=== PATIENT | female | born 1960 | race Caucasian/White ===

== ENCOUNTER 2018-03-11 16:11 | Outpatient (CLI) | END 2018-03-11 16:12 | disposition home or self-care (01) | LOC: FCC-LAB 16:11 | PROVIDERS: ATTEND Family Medicine | DX: Z13.220 Encounter for screening for lipoid disorders (principal); Z68.38 Body mass index [BMI] 38.0-38.9, adult | CPT/HCPCS: 36415; 80053; 80061; 85025 ==

== ENCOUNTER 2018-03-18 09:44 | Outpatient (CLI) ==
--- NOTE | 2018-03-18 11:17 | DI ---
EXAM: Single contrast esophagram. History: Dysphagia. Technique: Patient was given oral barium. Multiple spot films of the esophagus and gastroesophageal junction were obtained in various projections. Findings: The course and caliber of the esophagus are within normal limits. No mucosal lesions or fi lling defects. The gastroesophageal junction is patent. No hiatal hernia. No gastroesophageal refl ux. Anterior cervical fusion hardware seen from C5-C7. Just anterior to the cervical fusion hardware, there is a large pocket of contrast material that has accumulated measuring about 4 cm. Impression: Within the soft tissues anterior to the cervical fusion hardware, there is a large pocket of contrast material most compatible with a Zenker's diverticulum and most likely the cause for ean ent's dysphagia.
== END 2018-03-18 09:45 | disposition home or self-care (01) ==
LOC: RAD 09:44
PROVIDERS: ATTEND Family Medicine
DX: R13.10 Dysphagia, unspecified (principal)

== ENCOUNTER 2018-03-19 08:46 | Outpatient (CLI) ==
--- NOTE | 2018-03-20 10:03 | MAMMO ---
EXAM: Bilateral digital screening mammogram (2-D and 3-D) History: Baseline screening Findings: MLO and CC views of bilateral breasts demonstrate scattered fibroglandular breast parenchy ma. CAD was reviewed by the radiologist. Tomosynthesis was performed. There are no dominant masses , no suspicious microcalcifications and no architectural distortions Impression: Negative mammogram. Recommend followup routine screening mammography in 1 year. BIRADS 1
== END 2018-03-19 08:47 | disposition home or self-care (01) ==
LOC: RAD 08:46
PROVIDERS: ATTEND Family Medicine
DX: Z12.31 Encounter for screening mammogram for malignant neoplasm of breast (principal); N30.90 Cystitis, unspecified without hematuria; R73.9 Hyperglycemia, unspecified
CPT/HCPCS: 36415; 77067; 83036; 87086

== ENCOUNTER 2018-07-05 12:44 | Outpatient (CLI) | END 2018-07-05 12:45 | disposition home or self-care (01) | LOC: CAR 12:44 | PROVIDERS: ATTEND Anesthesiology | DX: Z01.818 Encounter for other preprocedural examination (principal); J45.909 Unspecified asthma, uncomplicated; K21.9 Gastro-esophageal reflux disease without esophagitis | CPT/HCPCS: 93005; 93010 ==

== ENCOUNTER 2018-08-11 07:34 | Emergency (ER) ==
[2018-08-11 07:41] VITALS: BP 139/83; TEMP 97.7; BMI 34.9
--- NOTE | 2018-08-11 08:03 | ED.PDOC ---
General ED Provider: Dr. CHARLENE SHANNON-ER Chief Complaint: Wound Check Stated Complaint: i had surgery in [place]--now its swelling and draining and i have fever and chills Time Seen by Physician: 07:45 Mode of Arrival: Walk-In Information Source: Patient Exam Limitations: No limitations Primary Care Provider: RACHEL HALE Nursing and Triage Documentation Reviewed and Agree: Yes Does patient meet sepsis criteria?: No System Inflammatory Response Syndrome: Not Applicable Sepsis Protocol: For patient's 13 years and over: Temp is 96.8 and below OR 101 and greater Pulse >90 BPM Resp >20/minute Acutely Altered Mental Status Are patient's symptoms suggestive of a new infection, such as: -Pneumonia -Skin, Soft Tissue -Endocarditis -UTI -Bone, Joint Infection -Implantable Device -Acute Abdominal Infection -Wound Infection -Meningitis -Blood Stream Catheter Infection -Unknown Skin Complaint Exam - Skin/Soft Tissue Complaint/Exam Onset/Duration: one week Symptoms Are: Still present Timing: Constant Initial Severity: Mild Current Severity: Moderate Location: left neck Character: Reports: Redness, Swelling, Raised, Painful Aggravating: Reports: Touch Alleviating: Reports: None Associated Signs and Symptoms: Reports: Fever, Chills, Drainage, Tenderness, Red streaks Related Surgical History: Reports: None Recent Exposure to Others w/Similar Symptoms: No Skin Findings: Present: Erythema, Induration, Fluctuant mass, Weeping skin Joint Tenderness Present: No Differential Diagnoses: Cellulitis, Infection Review of Systems - Review Of Systems Constitutional: Reports: No symptoms Eyes: Reports: No symptoms Ears, Nose, Mouth, Throat: Reports: No symptoms Respiratory: Reports: No symptoms Cardiac: Reports: No symptoms GI: Reports: No symptoms : Reports: No symptoms Musculoskeletal: Reports: No symptoms Skin: Reports: No symptoms Neurological: Reports: No symptoms Endocrine: Reports: No symptoms Hematologic/Lymphatic: Reports: No symptoms All Other Systems: Reviewed and Negative Past Medical History - Past Medical History Previously Healthy: Yes Endocrine: Reports: Unknown Cardiovascular: Reports: Unknown Respiratory: Reports: Unknown Hematological: Reports: Unknown Gastrointestinal: Reports: Unknown Genitourinary: Reports: Unknown Neuro/Psych: Reports: Unknown Musculoskeletal: Reports: Unknown Cancer: Reports: Unknown Last Menstrual Period: HSYTERECTOMY - Surgical History General Surgical History: Reports: Unknown - Family History Family History: Reports: Unknown - Social History Smoking Status: Never smoker Hx Substance Use: No Alcohol Screening: None - Immunizations Tetanus Shot up to Date: Yes Physical Exam - Physical Exam Appearance: Well-appearing Pain Distress: Mild Eyes: IRINEO, EOMI, Conjunctiva clear ENT: Ears normal, Nose normal, Oropharynx normal Neck: Supple Respiratory: Airway patent Cardiovascular: RRR, Pulses normal, No rub, No murmur GI/: Soft, Nontender, No masses, Bowel sounds normal, No Organomegaly Musculoskeletal: Normal strength, ROM intact, No edema, No calf tenderness Skin: Warm (exam does confirm mass left neck with 3cm mass with pustular drainage noted), Dry, Normal color Neurological: Sensation intact, Motor intact, Reflexes intact, Cranial nerves intact, Alert, Oriented Psychiatric: Affect appropriate, Mood appropriate Interpretation - Radiology Interpretation Radiology Interpretation By: Radiologist Radiology Results: Positive Exam Interpreted: CT Scan Physician Notification - Case Discussed Physician Notified: dr sosa notified and will see in er Time of Notification: 09:42 Critical Care Note - Critical Care Note Total Time (mins): 0 Course - Course Hematology/Chemistry: 08/11/18 08:16 08/11/18 08:16 Orders, Labs, Meds: Lab Review 08/11/18 08/11/18 08:16 08:16 WBC 10.74 H RBC 4.38 Hgb 12.9 Hct 37.9 MCV 86.5 MCH 29.5 MCHC 34.0 RDW Coeff of Manoj 13.4 Plt Count 329 Immature Gran % (Auto) 0.4 Neut % (Auto) 74.6 Lymph % (Auto) 15.2 [place] % (Auto) 8.8 Eos % (Auto) 0.7 Baso % (Auto) 0.3 Immature Gran # (Auto) 0.0 Neut # (Auto) 8.0 H Lymph # (Auto) 1.6 [place] # (Auto) 0.9 Eos # (Auto) 0.1 Baso # (Auto) 0.0 ESR 87 H Sodium 139.0 Potassium 3.52 Chloride 101.7 Carbon Dioxide 25.2 Anion Gap 15.62 BUN 18.4 H Creatinine 0.62 Estimated GFR (MDRD) 98.00 BUN/Creatinine Ratio 29.67 Glucose 127.7 H Calcium 9.06 Total Bilirubin 0.81 AST 30.7 ALT 24.4 Alkaline Phosphatase 107.9 Total Protein 7.79 Albumin 3.72 Globulin 4.07 Albumin/Globulin Ratio 0.91 Orders Category Date Time Status TRANSFER TO OUTSIDE FACILITY .TO OTHER OUTSIDE FACILITY CARE 08/11/18 09:43 Active (SEE ORDER DETAILS) WRITE TRANSFER/SBAR NOTE ONCE CARE 08/11/18 09:43 Active DISCHARGE ASSESSMENT ONCE DISCHARGE 08/11/18 09:43 Active WRITE DISCHARGE NOTE ONCE DISCHARGE 08/11/18 09:43 Active Wound care [ED WOUND CARE] .ONCE EMERGENCY 08/11/18 07:56 Active BLOOD CULTURE (ED ONLY) Stat LAB 08/11/18 08:16 Received CBC W/ AUTO DIFF Stat LAB 08/11/18 08:16 Completed COMPREHENSIVE METABOLIC PANEL Stat LAB 08/11/18 08:16 Completed ESR Stat LAB 08/11/18 08:[address] SOFT TISSUE NECK W/O CONTR Stat RADS 08/11/18 07:52 Completed the patient and family decline ems transfer-- wants to transfer by vehicle--i was comfortable with this since no airway compromise Vital Signs: Temp Pulse Resp BP Pulse Ox 08/11/18 07:34 97.7 F 111 H 20 139/83 96 Departure - Departure Time of Disposition: 09:42 Disposition: TSF SHORT-TRM HOSP Discharge Problem: Abscess after procedure Instructions: Abscess (ED) Condition: Good Pt referred to PMD for follow-up: No IPMP verified?: No Allergies/Adverse Reactions: Allergies latex Allergy (Intermediate, Unverified 08/11/18 07:41) Causes blisters Penicillins Adverse Reaction (Severe, Unverified 08/11/18 07:41) Difficulty Breathing Trouble breathing erythromycin base Adverse Reaction (Mild, Unverified 08/11/18 07:41) diarrhea Home Medications: Ambulatory Orders 1 [No Reported Medications] 08/11/18 Transfer Form Completed: Yes Disposition Discussed With: Patient, Family
--- NOTE | 2018-08-11 08:46 | CT ---
Exam: CT scan of the neck without contrast. Date: 08/11/2018. History: History of recent surgery with erythema and drainage. TECHNIQUE: Helical scan of the neck was performed without contrast. FINDINGS: The basilar cerebral and cerebellar hemispheres are within normal limits. The ethmoid, ma xillary and sphenoid sinuses are clear. The mastoid air cells are clear. The basilar calvarium and mandible are intact. Multilevel degenerative changes are present in the cervical spine including the C5-C7 anterior interbody fusion. The thoracic spine to the level of the carrie is normal, with gran ulomatous calcifications present. The lung apices are clear. The parapharyngeal psychiatric aides teacher spaces are normal. The parotid and right submandibular gland are oren l. The tonsils, tongue base, epiglottis and vallecula are normal. The vocal cords are symmetric. T he thyroid gland is normal. There is air identified in the prevertebral space with linear material e xtending cranial caudal anterior to the C5-C7 vertebral bodies, from axial images 41 - 49. There is a 6.0 x 3.0 x 6.7 cm irregular air and fluid collection that begins adjacent to the left submandibula r gland and extends inferiorly in the soft tissues of the left neck, anterior to the left sternocleid omastoid muscle and terminating about the inferior margin of the left lobe of the thyroid. This air fluid collection may be in continuity with the prevertebral soft tissue. Impression: Findings indicative of a left neck abscess. A C5-C7 anterior interbody fusion is present and there is air and soft tissue in the prevertebral space superficial to the fusion that may extend laterally to a 6.0 x 3.0 x 6.7 cm irregular fluid collection that begins adjacent to the left subman dibular gland that extends inferiorly in the soft tissues along the left neck, terminating at about t he inferior margin of the left lobe of the thyroid gland. Cannot exclude the possibility of infected interbody fusion. In addition, there is a linear foreign body in the prevertebral soft tissues at th e same level; whether this represents a suture line or other foreign body is not known.
== END 2018-08-11 09:55 | disposition short-term general hospital (02) ==
LOC: ED 07:34
DX: T81.4XXA Infection following a procedure, initial encounter (principal); L02.11 Cutaneous abscess of neck
CPT/HCPCS: 36415; 80053; 85025; 85651; 87040; 87070; 99285

== ENCOUNTER 2018-08-13 17:00 | Outpatient (CLI) | END 2018-08-13 17:01 | disposition home or self-care (01) | LOC: FCC-LAB 17:00 | PROVIDERS: ATTEND Family Medicine | DX: T81.4XXD Infection following a procedure, subsequent encounter (principal) | CPT/HCPCS: 87070 ==

== ENCOUNTER 2018-09-06 07:51 | Outpatient (CLI) ==
--- NOTE | 2018-09-06 11:32 | DI ---
EXAM: Esophagram HISTORY: Zenkers diverticulum COMPARISON: CT neck 03/18/2018 FINDINGS: Esophagram was performed with water-soluble contrast and barium. Spinal fusion hardware n oted. Imaging tailored in the region of the pharynx. There is small area of contour abnormality of the cervical esophagus at the level of C6-C7 with small posterior extension of contrast in this regio n with contrast extending to the level of cervical hardware.. This may relate to postsurgical change . A contained leak is possible. Esophagram otherwise unremarkable. IMPRESSION: Unexpected finding: Small area of contour abnormality of the cervical esophagus at the level of C6-C7 with small posterior extension of contrast in this region with contrast extending to t he level of cervical hardware. This may relate to postsurgical change, though a contained leak is po ssible. Recommend a short-term follow-up examination for reevaluation of this finding. Additionally, a CT neck with oral and intravenous contrast could also be considered for further evaluation.
== END 2018-09-06 07:52 | disposition home or self-care (01) ==
LOC: RAD 07:51
PROVIDERS: ATTEND Otolaryngology
DX: Z09 Encounter for follow-up examination after completed treatment for conditions other than malignant neoplasm (principal); K22.5 Diverticulum of esophagus, acquired